=== PATIENT | male | born 1955 | race Caucasian/White ===

== ENCOUNTER 2017-03-06 15:58 | Emergency (ER) | payer OTHER ==
[~2017-03-06] VITALS: Ht 177.8 cm; Wt 100.0 kg
[2017-03-06 17:03] LABS: CHLORIDE 107 mEq/L (99-109); POTASSIUM 4.4 mEq/L (3.7-5.4); SODIUM 138 mEq/L (136-147)
[2017-03-06 17:04] LABS: GLUCOSE 130 mg/dL (70-99)
[2017-03-06 17:06] LABS: ANION GAP 10 MEQ/L (2-14)
[2017-03-06 17:08] LABS: GFR ESTIMATE (CALCULATED) > 59 mL/min/
[2017-03-06 17:09] LABS: UREA NITROGEN (BUN) 9 mg/dL (9-23)
[2017-03-06 17:13] LABS: TROP-I INTERPRETATION NEGATIVE; TROPONIN-I < 0.01 ng/mL (0.0-0.30)
[2017-03-06 18:04] LABS: HEMATOCRIT 46.5 % (38.0-50.0); MCH 27.1 PG (29.0-34.0); MCHC 31.6 G/DL (30.0-36.0); MCV 85.6 FL (86-99); MEAN PLAT.VOLUME 9.7 uM^3 (9.0-12.4); PLATELET COUNT 183 K/uL (156-360); RBC DIS.WIDTH-CV 12.4 % (11.8-14.6); RED BLOOD COUNT 5.43 M/uL (4.00-5.50); WHITE BLOOD COUNT 4.2 K/uL (4.1-10.2)
[2017-03-06 18:36] LABS: TROP-I INTERPRETATION NEGATIVE; TROPONIN-I < 0.01 ng/mL (0.0-0.30)
[2017-03-06 19:31] VITALS: BP 127/85
== END 2017-03-06 19:35 ==
LOC: EME 15:58
PROVIDERS: Emergency Medicine
DX: R07.9 Chest pain, unspecified (principal); I10 Essential (primary) hypertension; Z87.891 Personal history of nicotine dependence
CPT/HCPCS: 71020; 80048; 83880; 84484; 85027; 93005; 99281; 99284

== ENCOUNTER 2017-10-14 17:43 | Emergency (ER) | payer OTHER ==
[~2017-10-14] VITALS: Ht 177.8 cm; Wt 98.4 kg
[2017-10-14 18:14] LABS: HEMATOCRIT 47.6 % (38.0-50.0); MCH 27.8 PG (29.0-34.0); MCHC 32.4 G/DL (30.0-36.0); MCV 85.9 FL (86-99); MEAN PLAT.VOLUME 9.5 uM^3 (9.0-12.4); PLATELET COUNT 194 K/uL (156-360); RBC DIS.WIDTH-CV 12.6 % (11.8-14.6); RBC DIS.WIDTH-SD 39.4 % (39-53); RED BLOOD COUNT 5.54 M/uL (4.00-5.50); WHITE BLOOD COUNT 4.4 K/uL (4.1-10.2)
[2017-10-14 18:21] LABS: INTER. NORMALIZED RATIO 1.1; PROTHROMBIN TIME 12.1 SEC (10.2-12.9)
[2017-10-14 18:22] LABS: CHLORIDE 110 mEq/L (99-109); POTASSIUM 4.1 mEq/L (3.7-5.4); SODIUM 141 mEq/L (136-147)
[2017-10-14 18:23] LABS: GLUCOSE 92 mg/dL (70-99)
[2017-10-14 18:24] LABS: PTT 31.5 SEC (25-37)
[2017-10-14 18:25] LABS: ANION GAP 7 MEQ/L (2-14)
[2017-10-14 18:27] LABS: GFR ESTIMATE (CALCULATED) > 59 mL/min/
[2017-10-14 18:28] LABS: UREA NITROGEN (BUN) 14 mg/dL (9-23)
[2017-10-14 18:39] LABS: TROP-I INTERPRETATION NEGATIVE; TROPONIN-I < 0.01 ng/mL (0.0-0.30)
[2017-10-14 20:09] VITALS: BP 131/96
== END 2017-10-14 20:14 ==
LOC: EME 17:43
PROVIDERS: Emergency Medicine
DX: R07.9 Chest pain, unspecified (principal); R00.2 Palpitations; I10 Essential (primary) hypertension; Z87.891 Personal history of nicotine dependence
CPT/HCPCS: 71020; 80048; 84484; 85027; 85610; 85730; 93005; 99281; 99285